=== PATIENT | female | born 1975 | race Caucasian/White ===

== ENCOUNTER 2023-07-03 08:33 | Emergency (ER) | payer MEDICAID ==
[~2023-07-03] VITALS: Ht 160 cm; Wt 50.0 kg
[2023-07-03 08:36] VITALS: O2SAT 100
[2023-07-03 09:17] LABS: BASOPHILS % 0.6 % (0.0-2.0); EOSINOPHILS % 1.1 % (0.0-5.0); HEMOGLOBIN. 13.4 g/dL (12.0-16.0); LYMPHOCYTES % 27.2 % (20.0-50.0); MEAN CORPUSCULAR HGB CONC 32.7 g/dL (31.0-37.0); MEAN CORPUSCULAR VOLUME 91.7 fL (81.0-99.0); MEAN PLATELET VOLUME 8.1 fl (7.4-10.4); NEUTROPHILS % 65.1 % (40.0-76.0); PLATELET 197 x1000/uL (130-400); RED BLOOD CELL COUNT 4.48 mill/uL (4.2-5.4); RED CELL DISTRIBUTION WIDTH 13.9 % (11.6-14.6); WHITE BLOOD COUNT 5.8 x1000/uL (4.5-11.0)
[2023-07-03] MEDS: SODIUM CHLORIDE 0.9% 1,000 ML IV ONE (09:17)
[2023-07-03 09:24] LABS: PROTHROMBIN TIME 11.2 sec (9.6-11.0)
[2023-07-03 09:43] LABS: CHLORIDE 105 mEq/L (98-107); POTASSIUM 4.8 mEq/L (3.5-5.1); SODIUM 137 mEq/L (136-145)
[2023-07-03 09:44] LABS: CALCIUM 8.4 mg/dL (8.7-10.4); CARBON DIOXIDE 27 mEq/L (21-32)
[2023-07-03 09:49] LABS: CREATININE 0.8 mg/dL (0.6-1.0); GLUCOSE 95 mg/dL (70-105); UREA NITROGEN BLOOD 8 mg/dL (9-23)
[2023-07-03 09:51] LABS: ALANINE AMINOTRANSFERASE 38 IU/L (10-49); ALBUMIN 3.8 g/dL (3.2-4.8); ASPARTATE AMINOTRANSFERASE 29 IU/L (<34)
[2023-07-03 09:52] LABS: BILIRUBIN TOTAL 0.4 mg/dL (0.1-1.0); HCG SCREEN NEGATIVE; PROTEIN TOTAL 6.4 g/dL (6.0-8.3)
[2023-07-03 11:06] VITALS: BP 99/57; PULSE 74; RESP 12; TEMP 98.4
[2023-07-03 11:22] LABS: CLARITY URINE CLEAR (CLEAR); COLOR URINE YELLOW (YELLOW); GLUCOSE URINE NEGATIVE (NEGATIVE); KETONES URINE NEGATIVE (NEGATIVE); LEUKOCYTE ESTERASE URINE NEGATIVE (NEGATIVE); NITRITE URINE NEGATIVE (NEGATIVE); OCCULT BLOOD URINE NEGATIVE (NEGATIVE); PROTEIN URINE NEGATIVE (NEGATIVE); SPECIFIC GRAVITY URINE 1.011 (1.005-1.030); UROBILINOGEN URINE 0.2 E.U./dL (0.2-1.0)
== END 2023-07-03 11:10 | disposition home or self-care (01) ==
LOC: ER 09:03
DX: R55 Syncope and collapse (principal); Z86.59 Personal history of other mental and behavioral disorders
CPT/HCPCS: 99284; 96360; 80053; 81003; 84703; 83880; 85025; 85610; 36415; 93005; J7030